=== PATIENT | male | born 1970 | race Caucasian/White ===

== ENCOUNTER → 2023-02-13 | Outpatient (CLI) | payer OTHER, SELFPAY ==
[2023-02-13 17:03] LABS: D-Dimer Quantitative (DVT/PE) 0.86 FEU/ug/m (0.27-0.49)
== END | disposition home or self-care (01) ==
PROVIDERS: PCP Family Medicine; Referring Provider Nurse Practitioner Family; Visit Provider Nurse Practitioner Family
DX: S49.92XA Unspecified injury of left shoulder and upper arm, initial encounter (principal); M21.922 Unspecified acquired deformity of left upper arm; M21.932 Unspecified acquired deformity of left forearm; M20.002 Unspecified deformity of left finger(s); R29.898 Other symptoms and signs involving the musculoskeletal system; X58.XXXA Exposure to other specified factors, initial encounter
CPT/HCPCS: 85379

== ENCOUNTER → 2024-09-25 | Outpatient (CLI) | payer SELFPAY ==
[2024-09-30 12:08] LABS: QNTFERON TB Mitogen Value > 10.00 IU/mL (.); QNTFERON TB Nil Value 0.08 IU/mL (.); QNTFERON TB1+ Ag Value 0.07 IU/mL (.); QNTFERON TB2+ Ag Value 0.07 IU/mL (.); QNTIFERON TB Positive Criteria Negative (Negative)
== END | disposition home or self-care (01) ==
LOC: MTLAB 14:40
PROVIDERS: PCP Family Medicine; Referring Provider Physician Assistant Medical; Visit Provider Physician Assistant Medical
DX: L40.0 Psoriasis vulgaris (principal)
CPT/HCPCS: 36415; 86480